=== PATIENT | male | born 1945 | race Two or more races ===

== ENCOUNTER 2023-07-10 17:21 | Inpatient (IN) | payer MEDICARE, OTHER ==
[~2023-07-10] VITALS: Ht 160 cm; Wt 60.8 kg
[2023-07-10] VITALS (8 sets, daily range): BP systolic 64–85; BP diastolic 55–75; TEMP 87.5–87.6; O2SAT 95–96
[2023-07-10] MEDS ORDERED: ETOMIDATE 2 MG/ML VIAL IV ONE (17:37)
[2023-07-10 18:06] LABS: BASOPHILS % (AUTO) 0.3 % (0.0-2.0); HEMATOCRIT 35 % (39-51); LYMPHOCYTES # (AUTO) 0.9 K/uL (0.8-4.8); LYMPHOCYTES % (AUTO) 5.2 % (20.0-44.0); MEAN CORPUSCULAR HEMOGLOBIN 29 PG (26.0-33.0); MEAN CORPUSCULAR HGB CONC 32 g/dl (31.0-36.0); MEAN CORPUSCULAR VOLUME 92 fL (80-96); MONOCYTES # (AUTO) 0.3 K/uL (0.1-1.30); MONOCYTES % (AUTO) 1.6 % (2.0-12.0); NEUTROPHILS # (AUTO) 15.5 K/uL (1.8-8.9); NEUTROPHILS % (AUTO) 92.9 % (43.0-81.0); PLATELET COUNT (AUTO) 165 K/uL (150-450); RED BLOOD CELL COUNT(AUTO) 3.77 MIL/uL (4.5-6.0); RED CELL DISTRIBUTION WIDTH 15.3 % (11.5-15.0); WHITE BLOOD COUNT (AUTO) 16.7 K/uL (4.3-11.0)
[2023-07-10] MEDS: IV LR 1000 ML 1,000 ML BAG IV ONE ×2 (18:10→18:45)
[2023-07-10 18:22] LABS: APPEARANCE,URINE Cloudy (CLEAR); BILIRUBIN,URINE SMALL (NEGATIVE); BLOOD, URINE Large Ery/uL (NEGATIVE); COLOR,URINE YELLOW (YELLOW); KETONES,URINE 15 mg/dL (NEGATIVE); LEUKOCYTE ESTERASE ,URINE Small (NEGATIVE); NITRITE, URINE Negative (NEGATIVE); PROTEIN,URINE 100 mg/dl (NEGATIVE); UGLUCOSE Negative (NEGATIVE); UROBILINOGEN,URINE 0.2 EU/dL (0.2)
[2023-07-10 18:24] LABS: LACTIC ACID 2.5 mmol/L (0.4-2.0)
[2023-07-10 18:25] LABS: CALCIUM, SERUM 8.8 mg/dL (8.5-10.1); CARBON DIOXIDE 21 mmol/L (21-32); CHLORIDE 119 mmol/L (98-107); CREATININE 1.9 mg/dL (0.6-1.3); GLUCOSE 179 mg/dL (74-106); SODIUM SERUM 151 mmol/L (136-145); UREA NITROGEN, BLOOD 49 mg/dL (7-18)
[2023-07-10] MEDS ORDERED: MELA3TAB41 PO (18:25)
[2023-07-10] MEDS ORDERED: FOLI0.8T3 PO (18:25)
[2023-07-10] MEDS ORDERED: TAMS-12 PO (18:25)
[2023-07-10] MEDS ORDERED: CYAN-51 PO (18:25)
[2023-07-10] MEDS ORDERED: THIA100T88 PO (18:25)
[2023-07-10] MEDS ORDERED: CRAN425C6 PO (18:25)
[2023-07-10 18:28] LABS: ACETAMINOPHEN 2 ug/ml (10-30); ALANINE AMINOTRANSFERASE 42 U/L (12-78); ALBUMIN 2.1 g/dL (3.4-5.0); ALCOHOL, BLOOD < 3 mg/dL (0-10); ALKALINE PHOSPHATASE 89 U/L (46-116); ASPARTATE AMINOTRANSFERASE 48 U/L (15-37); BILIRUBIN,DIRECT 0.2 mg/dL (0.0-0.2); BILIRUBIN,TOTAL 0.4 mg/dL (0.2-1.0); TOTAL PROTEIN, SERUM 5.4 g/dL (6.4-8.2)
[2023-07-10 18:30] LABS: SALICYLATE 2.5 mg/dL (2.8-20.0)
[2023-07-10 18:36] LABS: RBC,URINE 21-50 /HPF (0-2)
[2023-07-10 18:37] LABS: ADD URINE CULTURE YES; BACTERIA,URINE 1+ /HPF (None Seen); SQUAMOUS EPITHELIAL CELL,UR Few /HPF (None Seen)
[2023-07-10 18:38] LABS: AMPHETAMINE, URINE NEGATIVE (NEGATIVE); BARBITURATE, URINE NEGATIVE (NEGATIVE); BENZODIAZEPINE, URINE NEGATIVE (NEGATIVE); CALCIUM OXALATE CRYSTALS,UR FEW /HPF (None Seen); CANNABINOID, URINE NEGATIVE (NEGATIVE); COCCAINE, URINE NEGATIVE (NEGATIVE); OPIATE, URINE NEGATIVE (NEGATIVE); PHENCYCLIDINE SCREEN,URINE NEGATIVE (NEGATIVE)
[2023-07-10] MEDS ORDERED: NOREPINEPHRINE 8MG/250ML RTU 250 ML IV ONE (18:41)
[2023-07-10] MEDS: CEFEPIME 1 GM in IV D5W 50 ML IV ONE (18:45)
[2023-07-10] MEDS: VANCOMYCIN 1 GM in IV D5W 250 ML IV ONE (18:45)
[2023-07-10 18:56] LABS: THYROID STIMULATING HORMONE 4.795 uIU/mL (0.358-3.74)
[2023-07-10] MEDS: NOREPINEPHRINE 8 MG in IV NS 0.9% 250 ML IV ONE (19:00)
[2023-07-10 20:29] LABS: INR 1.18 (0.91-1.10)
[2023-07-10 20:46] LABS: ANISOCYTOSIS 1+; BAND % (MANUAL) 4 % (0.0-5.0); LYMPHOCYTES % (MANUAL) 5 % (16-48); MONOCYTES % (MANUAL) 3 % (0-11.0); NEUTROPHILS % (MANUAL) 88 (42-76); PLATELET ESTIMATE ADEQUATE
[2023-07-10] MEDS ORDERED: ACETAMINOPHEN 650 MG/SUPP.RECT RC PRN (22:00)
[2023-07-10] MEDS ORDERED: PROPOFOL 100 ML IV ONE (22:00)
[2023-07-10] MEDS ORDERED: Z GUARD REMEDY 4 OZ OINT TP PRN (22:00)
[2023-07-10] MEDS ORDERED: NOREPINEPHRINE 8 MG in IV D5W 242 ML IV PRN (22:00)
[2023-07-10] MEDS ORDERED: ONDANSETRON HCL/PF 4 MG/2 ML VIAL IVP PRN (22:00)
[2023-07-10 22:37] LABS: ABG OXYGEN SATURATION 89.7 % (92.0-98.5); ABG PCO2 25.6 mmHg (35.0-45.0); ABG PH 7.331 (7.350-7.450); ABG PO2 61.4 mmHg (75.0-100.0); ABG TOTAL HEMOGLOBIN 12.5 G/dL (13.5-18.0); COHb 0.3 % (0.5-1.5); MetHb 0.2 % (0.0-1.5); O2Hb 89.3 % (94.0-97.0); PEEP,BG 5 cm H2O; SITE, ABG Right Radial; VENT MODE, BG AC 20 500 40% +5; VT, ABG 500 mL
[2023-07-10] MEDS: NOREPINEPHRINE 8 MG in IV D5W 242 ML IV PRN (23:00)
[2023-07-10] MEDS: NOREPINEPHRINE 8MG/250ML RTU 250 ML IV ONE (23:02)
[2023-07-10] MEDS: IV D5W 1,000 ML IV PRN (23:21)
[2023-07-10] MEDS: PHENYLEPHRINE 100 MG in IV NS 0.9% 240 ML IV PRN (23:32)
[2023-07-10] MEDS: PHENYLEPHRINE 10 MG/ML VIAL ONE (23:42)
[2023-07-10] MEDS ORDERED: PERMETHRIN 5% CRM 60 GM TUBE TP ONE (23:57)
[2023-07-11] VITALS (99 sets, daily range): BP systolic 50–147; BP diastolic 26–87; TEMP 90.1–98.2; O2SAT 87–100
[2023-07-11] MEDS: NOREPINEPHRINE 4 MG/4 ML AMPUL IV ONE (00:11)
[2023-07-11] MEDS: HYDROCORTISONE SOD SUCCINATE 100 MG/2 ML VIAL IV SCH (00:44)
[2023-07-11 00:58] LABS: CALCIUM, SERUM 8.3 mg/dL (8.5-10.1); CARBON DIOXIDE 18 mmol/L (21-32); CHLORIDE 113 mmol/L (98-107); GLUCOSE 371 mg/dL (74-106); MAGNESIUM 2.5 mg/dL (1.8-2.4); POTASSIUM 4.3 mmol/L (3.5-5.1); SODIUM SERUM 149 mmol/L (136-145); UREA NITROGEN, BLOOD 48 mg/dL (7-18)
[2023-07-11] MEDS: PERMETHRIN 5% CRM 60 GM TUBE TP ONE (01:02)
[2023-07-11] MEDS: NOREPINEPHRINE 32 MG in IV NS 0.9% 218 ML IV PRN (01:22)
[2023-07-11] MEDS: IV NS 0.9% 1,000 ML IV ONE (01:35)
[2023-07-11] MEDS: VASOPRESSIN INJ 40 UNIT in IV NS 0.9% 38 ML IV PRN (03:27)
[2023-07-11] MEDS ORDERED: MEROPENEM 500 MG in IV NS 0.9% 50 ML IV SCH (04:00)
[2023-07-11] MEDS: MEROPENEM 500MG/NS 50 ML PB IV ONE (04:09)
[2023-07-11] MEDS: MEROPENEM 500 MG in IV NS 0.9% 50 ML IV ONE (04:10)
[2023-07-11] MEDS: VASOPRESSIN INJ 20 UNIT/ML VIAL ONE (04:11)
[2023-07-11 04:22] LABS: BASOPHILS % (AUTO) 0.1 % (0.0-2.0); EOSINOPHILS % (AUTO) 0.1 % (0.0-6.0); HEMATOCRIT 39 % (39-51); MEAN CORPUSCULAR HEMOGLOBIN 29 PG (26.0-33.0); MEAN CORPUSCULAR HGB CONC 31 g/dl (31.0-36.0); MEAN CORPUSCULAR VOLUME 94 fL (80-96); MONOCYTES # (AUTO) 0.4 K/uL (0.1-1.30); MONOCYTES % (AUTO) 1.6 % (2.0-12.0); NEUTROPHILS # (AUTO) 22.5 K/uL (1.8-8.9); NEUTROPHILS % (AUTO) 94.2 % (43.0-81.0); PLATELET COUNT (AUTO) 216 K/uL (150-450); RED BLOOD CELL COUNT(AUTO) 4.12 MIL/uL (4.5-6.0); RED CELL DISTRIBUTION WIDTH 15.9 % (11.5-15.0); WHITE BLOOD COUNT (AUTO) 23.9 K/uL (4.3-11.0)
[2023-07-11 04:52] LABS: CALCIUM, SERUM 7.7 mg/dL (8.5-10.1); CARBON DIOXIDE 14 mmol/L (21-32); CHLORIDE 113 mmol/L (98-107); CREATININE 1.9 mg/dL (0.6-1.3); GLUCOSE 362 mg/dL (74-106); MAGNESIUM 2.4 mg/dL (1.8-2.4); PHOSPHORUS 6.3 mg/dL (2.5-4.9); POTASSIUM 4.2 mmol/L (3.5-5.1); SODIUM SERUM 149 mmol/L (136-145); UREA NITROGEN, BLOOD 43 mg/dL (7-18)
[2023-07-11 04:58] LABS: IRON, SERUM 43 ug/dl (50-175); TOTAL IRON BINDING CAPACITY 143 ug/dl (250-450)
[2023-07-11 05:15] LABS: FERRITIN 891 ng/mL (8-388)
[2023-07-11 07:05] LABS: ABG BASE EXCESS -12.3 mmol/L; ABG OXYGEN SATURATION 94.4 % (92.0-98.5); ABG PCO2 29.7 mmHg (35.0-45.0); ABG PH 7.266 (7.350-7.450); ABG PO2 80.8 mmHg (75.0-100.0); ABG TOTAL HEMOGLOBIN 13.8 G/dL (13.5-18.0); AaDO2 614.9 mmHg; COHb 0.7 % (0.5-1.5); MetHb 0.4 % (0.0-1.5); O2Hb 93.4 % (94.0-97.0); PEEP,BG 0 cm H2O; SITE, ABG Right Radial; VENT MODE, BG AC 20 500 100% +0; VT, ABG 500 mL
[2023-07-11] MEDS: PANTOPRAZOLE 40 MG VIAL IV SCH (08:19)
[2023-07-11] MEDS: IV NS 0.9% 500 ML IV ONE (08:20)
[2023-07-11] MEDS: MEROPENEM 500 MG in IV NS 0.9% 100 ML IV SCH (16:14)
[2023-07-11] MEDS: VANCOMYCIN 750 MG in IV D5W 250 ML IV SCH (17:28)
[2023-07-11] MEDS: PROPOFOL 100 ML IV PRN (17:49)
[2023-07-11] MEDS: IV D5/0.45 NACL 1,000 ML IV PRN (18:35)
[2023-07-12] VITALS (98 sets, daily range): BP systolic 56–156; BP diastolic 37–90; TEMP 97.1–99.2; O2SAT 93–100
[2023-07-12 02:16] LABS: APPEARANCE,URINE SLIGHTLY CLOUDY (CLEAR); BILIRUBIN,URINE 1+ (NEGATIVE); BLOOD, URINE 3+ Ery/uL (NEGATIVE); COLOR,URINE YELLOW (YELLOW); KETONES,URINE 1+ mg/dL (NEGATIVE); LEUKOCYTE ESTERASE ,URINE 1+ (NEGATIVE); NITRITE, URINE NEGATIVE (NEGATIVE); PH,URINE 5.5 (5.0-8.0); PROTEIN,URINE 2+ mg/dl (NEGATIVE); UGLUCOSE 1+ mg/dL (NEGATIVE); UROBILINOGEN,URINE 0.2 EU/dL (0.2)
[2023-07-12] MEDS: IV NS 0.9% 250 ML IV PRN (03:07)
[2023-07-12 03:12] LABS: CREATININE, URINE 100.1 MG/DL (30.0-125.0)
[2023-07-12 03:29] LABS: ADD URINE CULTURE YES; BACTERIA,URINE Few /HPF (None Seen); CALCIUM OXALATE CRYSTALS,UR Moderate /HPF (None Seen); MUCUS,URINE Moderate /LPF (None Seen); RBC,URINE 21-50 /HPF (0-2); SQUAMOUS EPITHELIAL CELL,UR None Seen /HPF (None Seen)
[2023-07-12 04:20] LABS: EOSINOPHIL,URINE None Seen
[2023-07-12 04:21] LABS: BASOPHILS % (AUTO) 0.1 % (0.0-2.0); HEMOGLOBIN 9.8 g/dL (13.5-17.5); LYMPHOCYTES # (AUTO) 1.3 K/uL (0.8-4.8); MONOCYTES # (AUTO) 0.9 K/uL (0.1-1.30)
[2023-07-12 04:28] LABS: HEMATOCRIT 31 % (39-51); MEAN CORPUSCULAR HEMOGLOBIN 30 PG (26.0-33.0); MEAN CORPUSCULAR HGB CONC 32 g/dl (31.0-36.0); MEAN CORPUSCULAR VOLUME 94 fL (80-96); MONOCYTES % (AUTO) 2.8 % (2.0-12.0); NEUTROPHILS # (AUTO) 31.2 K/uL (1.8-8.9); NEUTROPHILS % (AUTO) 93.1 % (43.0-81.0); PLATELET COUNT (AUTO) 96 K/uL (150-450); RED BLOOD CELL COUNT(AUTO) 3.27 MIL/uL (4.5-6.0); RED CELL DISTRIBUTION WIDTH 15.8 % (11.5-15.0)
[2023-07-12 04:33] LABS: WHITE BLOOD COUNT (AUTO) 33.5 K/uL (4.3-11.0)
[2023-07-12 04:40] LABS: CREATINE KINASE, TOTAL 144 U/L (39-308)
[2023-07-12 04:58] LABS: BAND % (MANUAL) 2 % (0.0-5.0); LYMPHOCYTES % (MANUAL) 4 % (16-48); MONOCYTES % (MANUAL) 2 % (0-11.0); NEUTROPHILS % (MANUAL) 92 (42-76); PLATELET ESTIMATE DECREASED
[2023-07-12 04:59] LABS: ALANINE AMINOTRANSFERASE 35 U/L (12-78); ALBUMIN 1.6 g/dL (3.4-5.0); ALKALINE PHOSPHATASE 84 U/L (46-116); ASPARTATE AMINOTRANSFERASE 29 U/L (15-37); BILIRUBIN,TOTAL 0.5 mg/dL (0.2-1.0); CALCIUM, SERUM 6.7 mg/dL (8.5-10.1); CARBON DIOXIDE 16 mmol/L (21-32); CHLORIDE 112 mmol/L (98-107); CREATININE 2.8 mg/dL (0.6-1.3); MAGNESIUM 2.2 mg/dL (1.8-2.4); PHOSPHORUS 5.8 mg/dL (2.5-4.9); SODIUM SERUM 142 mmol/L (136-145); TOTAL PROTEIN, SERUM 4.6 g/dL (6.4-8.2); UREA NITROGEN, BLOOD 57 mg/dL (7-18)
[2023-07-12 05:05] LABS: GLUCOSE 571 mg/dL (74-106); POTASSIUM 6.3 mmol/L (3.5-5.1)
[2023-07-12] MEDS ORDERED: DEXTROSE 50%-WATER 50 ML DISP.SYRIN IV PRN ×2 (05:30→18:30)
[2023-07-12] MEDS: SODIUM BICARBONATE SYR 50 MEQ/50 ML DISP.SYRIN IV ONE (05:45)
[2023-07-12] MEDS: SODIUM POLYSTYRENE SULFONATE 15 G/60 ML BOTTLE PO ONE ×2 (05:45→09:27)
[2023-07-12] MEDS: IV 1/2NS 1000 ML 1,000 ML IV PRN (05:46)
[2023-07-12] MEDS: INSULIN REGULAR, HUMAN 100 UNIT/ML 10 ML VIAL IV ONE (06:06)
[2023-07-12] MEDS: BLOOD SUGAR DIAGNOSTIC 1 EACH STRIP IN SCH ×2 (06:12→09:24)
[2023-07-12] MEDS: INSULIN REGULAR, HUMAN 100 UNIT/ML 3 ML VIAL SQ ONE (06:16)
[2023-07-12] MEDS: DEXTROSE 50%-WATER 50 ML DISP.SYRIN IVP ONE (06:17)
[2023-07-12] MEDS: INSULIN REGULAR, HUMAN 100 UNIT/ML 3 ML VIAL SQ PRN (07:39)
[2023-07-12] MEDS: INSULIN REGULAR, HUMAN 100 UNIT in IV NS 0.9% 99 ML IV PRN (09:18)
[2023-07-12 09:23] LABS: CALCIUM, SERUM 6.7 mg/dL (8.5-10.1); CARBON DIOXIDE 19 mmol/L (21-32); CHLORIDE 115 mmol/L (98-107); CREATININE 3.1 mg/dL (0.6-1.3); POTASSIUM 5.4 mmol/L (3.5-5.1); SODIUM SERUM 147 mmol/L (136-145); UREA NITROGEN, BLOOD 58 mg/dL (7-18)
[2023-07-12] MEDS: Sodium Bicarbonate 50 MEQ in IV 1/2NS 1000 ML 1,000 ML IV SCH (09:26)
[2023-07-12] MEDS: BUMETANIDE INJ 0.25 MG/ML VIAL IV ONE (09:26)
[2023-07-12 09:27] LABS: GLUCOSE 660 mg/dL (74-106)
[2023-07-12] MEDS: HYDROCORTISONE SOD SUCCINATE 100 MG/2 ML VIAL IV SCH (09:27)
[2023-07-12] MEDS ORDERED: DICL100G34 TP (11:08)
[2023-07-12] MEDS ORDERED: NA P133E RC (11:08)
[2023-07-12] MEDS ORDERED: MAGN400O6 PO (11:08)
[2023-07-12] MEDS ORDERED: AMMO225L14 TP (11:08)
[2023-07-12] MEDS ORDERED: ACET-2605 PO (11:08)
[2023-07-12 13:27] LABS: CALCIUM, SERUM 6.8 mg/dL (8.5-10.1); CARBON DIOXIDE 19 mmol/L (21-32); CHLORIDE 119 mmol/L (98-107); CREATININE 3.2 mg/dL (0.6-1.3); GLUCOSE 295 mg/dL (74-106); POTASSIUM 4.2 mmol/L (3.5-5.1); SODIUM SERUM 153 mmol/L (136-145); UREA NITROGEN, BLOOD 55 mg/dL (7-18)
[2023-07-12] MEDS ORDERED: [UNRECOGNIZED DRUG - OTHER] IV PRN (15:30)
[2023-07-12] MEDS ORDERED: SODIUM BICARBONATE IV PRN ×2 (15:30→16:00)
[2023-07-12] MEDS ORDERED: POTASSIUM CHLORIDE IV PRN (15:30)
[2023-07-12] MEDS ORDERED: NACL IV SCH (16:00)
[2023-07-12] MEDS ORDERED: D5 IV PRN (16:00)
[2023-07-12] MEDS ORDERED: SODIUM BICARBONATE IV SCH (16:00)
[2023-07-12] MEDS ORDERED: NACL IV PRN (16:00)
[2023-07-12] MEDS ORDERED: D5 IV SCH (16:00)
[2023-07-12] MEDS: Sodium Bicarbonate 50 MEQ in IV D5/0.45 NACL 1,000 ML IV SCH (16:42)
[2023-07-12 17:57] LABS: CARBON DIOXIDE 24 mmol/L (21-32); CHLORIDE 125 mmol/L (98-107); CREATININE 2.7 mg/dL (0.6-1.3); GLUCOSE 96 mg/dL (74-106); POTASSIUM 3.2 mmol/L (3.5-5.1); UREA NITROGEN, BLOOD 50 mg/dL (7-18)
[2023-07-12 17:59] LABS: CALCIUM, SERUM 5.8 mg/dL (8.5-10.1); SODIUM SERUM 158 mmol/L (136-145)
[2023-07-12] MEDS: POTASSIUM CL. PREMIX PERIPHER. 50 ML IV SCH (18:26)
[2023-07-12] MEDS: VANCOMYCIN 750 MG in IV D5W 250 ML IV SCH (20:04)
[2023-07-13] VITALS (98 sets, daily range): BP systolic 79–123; BP diastolic 47–79; TEMP 96.4–98.4; O2SAT 95–100
[2023-07-13] MEDS: BLOOD SUGAR DIAGNOSTIC 1 EACH STRIP IN SCH ×2 (00:32→12:25)
[2023-07-13] MEDS: INSULIN REGULAR, HUMAN 100 UNIT/ML 3 ML VIAL SQ PRN ×2 (00:34→12:24)
[2023-07-13 05:00] LABS: BASOPHILS # (AUTO) 0.1 K/uL (0.0-0.2); BASOPHILS % (AUTO) 0.3 % (0.0-2.0); EOSINOPHILS % (AUTO) 0.1 % (0.0-6.0); HEMATOCRIT 24 % (39-51); HEMOGLOBIN 7.9 g/dL (13.5-17.5); LYMPHOCYTES # (AUTO) 2.5 K/uL (0.8-4.8); LYMPHOCYTES % (AUTO) 10.3 % (20.0-44.0); MEAN CORPUSCULAR HEMOGLOBIN 30 PG (26.0-33.0); MEAN CORPUSCULAR HGB CONC 32 g/dl (31.0-36.0); MEAN CORPUSCULAR VOLUME 92 fL (80-96); MONOCYTES # (AUTO) 0.9 K/uL (0.1-1.30); NEUTROPHILS # (AUTO) 20.3 K/uL (1.8-8.9); NEUTROPHILS % (AUTO) 85.3 % (43.0-81.0); PLATELET COUNT (AUTO) 51 K/uL (150-450); RED BLOOD CELL COUNT(AUTO) 2.64 MIL/uL (4.5-6.0); RED CELL DISTRIBUTION WIDTH 15.4 % (11.5-15.0); WHITE BLOOD COUNT (AUTO) 23.7 K/uL (4.3-11.0)
[2023-07-13 05:33] LABS: CALCIUM, SERUM 6.4 mg/dL (8.5-10.1); CARBON DIOXIDE 28 mmol/L (21-32); CHLORIDE 122 mmol/L (98-107); CREATININE 2.9 mg/dL (0.6-1.3); GLUCOSE 267 mg/dL (74-106); UREA NITROGEN, BLOOD 53 mg/dL (7-18)
[2023-07-13 05:37] LABS: POTASSIUM 2.8 mmol/L (3.5-5.1); SODIUM SERUM 159 mmol/L (136-145)
[2023-07-13 06:09] LABS: ABG OXYGEN SATURATION 96.2 % (92.0-98.5); ABG PCO2 23.4 mmHg (35.0-45.0); ABG PH 7.502 (7.350-7.450); ABG TOTAL HEMOGLOBIN 9.8 G/dL (13.5-18.0); AaDO2 172.3 mmHg; COHb 0.3 % (0.5-1.5); MetHb 0.3 % (0.0-1.5); O2Hb 95.6 % (94.0-97.0); PEEP,BG 0 cm H2O; SITE, ABG Left Radial; VT, ABG 500 mL
[2023-07-13] MEDS: POTASSIUM CL. PREMIX PERIPHER. 50 ML IV SCH (06:30)
[2023-07-13 06:59] LABS: LYMPHOCYTES % (MANUAL) 13 % (16-48); MONOCYTES % (MANUAL) 2 % (0-11.0); NEUTROPHILS % (MANUAL) 85 (42-76); PLATELET ESTIMATE DECREASED
[2023-07-13] MEDS: IV D5W 1,000 ML IV SCH (07:56)
[2023-07-13] MEDS ORDERED: DEXTROSE 50%-WATER 50 ML DISP.SYRIN IV PRN (08:30)
[2023-07-13] MEDS: GLUCERNA 1.2 1,000 ML BOTTLE NG PRN (10:42)
[2023-07-13 11:10] LABS: *ANA ANTI-CENTROMERE B AB <0.2 AI (0.0-0.9); *ANA ANTI-DNA(DS) AB, QN <1 IU/mL (0-9); *ANA ANTI-JO-1 <0.2 AI (0.0-0.9); *ANA ANTICHROMATIN ANTIBODY <0.2 AI (0.0-0.9); *ANA RNP ANTIBODIES >8.0 AI (0.0-0.9); *ANA SJOGREN'S ANTI-SS-A <0.2 AI (0.0-0.9); *ANA SJOGREN'S ANTI-SS-B 0.4 AI (0.0-0.9); *ANAANTI-SCLERODERMA-70 AB <0.2 AI (0.0-0.9); *ANASMITH AB <0.2 AI (0.0-0.9)
[2023-07-13] MEDS ORDERED: BLOOD SUGAR DIAGNOSTIC 1 EACH STRIP IN SCH ×2 (12:00)
[2023-07-13] MEDS: VITAMINS A AND D 56.7 GM TUBE TP SCH (13:50)
[2023-07-13 14:20] LABS: ABG OXYGEN SATURATION 95.7 % (92.0-98.5); ABG PCO2 30.3 mmHg (35.0-45.0); ABG PH 7.521 (7.350-7.450); ABG PO2 75.6 mmHg (75.0-100.0); ABG TOTAL HEMOGLOBIN 11.9 G/dL (13.5-18.0); AaDO2 102.7 mmHg; COHb 0.6 % (0.5-1.5); MetHb 0.3 % (0.0-1.5); O2Hb 94.8 % (94.0-97.0); SITE, ABG Right Radial
[2023-07-13] MEDS: MUPIROCIN OINT 2% 22 GM TUBE NS SCH (21:00)
[2023-07-14] VITALS (94 sets, daily range): BP systolic 87–157; BP diastolic 49–89; TEMP 95–97.6; O2SAT 95–100
[2023-07-14 02:10] LABS: PTH, INTACT 295 pg/mL (15-65)
[2023-07-14 03:07] LABS: HEPATITIS B SURFACE AB Non Reactive (.)
[2023-07-14 04:26] LABS: CALCIUM, SERUM 6.5 mg/dL (8.5-10.1); CARBON DIOXIDE 31 mmol/L (21-32); CHLORIDE 120 mmol/L (98-107); CREATININE 1.9 mg/dL (0.6-1.3); GLUCOSE 199 mg/dL (74-106); MAGNESIUM 1.8 mg/dL (1.8-2.4); PHOSPHORUS 3.4 mg/dL (2.5-4.9); POTASSIUM 2.9 mmol/L (3.5-5.1); SODIUM SERUM 155 mmol/L (136-145); UREA NITROGEN, BLOOD 48 mg/dL (7-18)
[2023-07-14 04:27] LABS: EOSINOPHILS # (AUTO) 0.1 K/uL (0.0-0.7); EOSINOPHILS % (AUTO) 0.4 % (0.0-6.0); HEMATOCRIT 22 % (39-51); HEMOGLOBIN 7.1 g/dL (13.5-17.5); LYMPHOCYTES # (AUTO) 2.2 K/uL (0.8-4.8); LYMPHOCYTES % (AUTO) 10.2 % (20.0-44.0); MEAN CORPUSCULAR HEMOGLOBIN 30 PG (26.0-33.0); MEAN CORPUSCULAR HGB CONC 32 g/dl (31.0-36.0); MEAN CORPUSCULAR VOLUME 92 fL (80-96); MONOCYTES # (AUTO) 0.7 K/uL (0.1-1.30); MONOCYTES % (AUTO) 3.4 % (2.0-12.0); NEUTROPHILS # (AUTO) 18.3 K/uL (1.8-8.9); RED CELL DISTRIBUTION WIDTH 15.5 % (11.5-15.0); WHITE BLOOD COUNT (AUTO) 21.2 K/uL (4.3-11.0)
[2023-07-14 04:28] LABS: PLATELET COUNT (AUTO) 40 K/uL (150-450)
[2023-07-14 08:09] LABS: COMPLEMENT C3, SERUM 56 mg/dL (82-167); COMPLEMENT C4, SERUM 14 mg/dL (12-38)
[2023-07-14 08:43] LABS: BAND % (MANUAL) 1 % (0.0-5.0); EOSINOPHILS % (MANUAL) 1 % (0-4); LYMPHOCYTES % (MANUAL) 8 % (16-48); MONOCYTES % (MANUAL) 2 % (0-11.0); NEUTROPHILS % (MANUAL) 88 (42-76); PLATELET ESTIMATE DECREASED
[2023-07-14 08:52] LABS: ABG BASE EXCESS 2.2 mmol/L; ABG PCO2 29.8 mmHg (35.0-45.0); ABG PH 7.537 (7.350-7.450); ABG PO2 79.6 mmHg (75.0-100.0); ABG TOTAL HEMOGLOBIN 7.3 G/dL (13.5-18.0); AaDO2 99.3 mmHg; COHb 1.2 % (0.5-1.5); MetHb 0.2 % (0.0-1.5); O2Hb 94.7 % (94.0-97.0); PEEP,BG 0 cm H2O; SITE, ABG Right Radial; VT, ABG 450 mL
[2023-07-14] MEDS: PANTOPRAZOLE 40 MG/PACK PACK NG SCH (09:00)
[2023-07-14] MEDS: POTASSIUM CL. PREMIX PERIPHER. 50 ML IV SCH (10:22)
[2023-07-14] MEDS: NOREPINEPHRINE 8 MG in IV NS 0.9% 242 ML IV PRN (21:12)
[2023-07-15] VITALS (94 sets, daily range): BP systolic 79–116; BP diastolic 44–64; TEMP 97.7–98.2; O2SAT 87–100
[2023-07-15 04:51] LABS: CALCIUM, SERUM 6.8 mg/dL (8.5-10.1); CARBON DIOXIDE 24 mmol/L (21-32); CHLORIDE 112 mmol/L (98-107); CREATININE 1.8 mg/dL (0.6-1.3); GLUCOSE 165 mg/dL (74-106); POTASSIUM 3.8 mmol/L (3.5-5.1); SODIUM SERUM 143 mmol/L (136-145); UREA NITROGEN, BLOOD 43 mg/dL (7-18)
[2023-07-16] VITALS (96 sets, daily range): BP systolic 77–137; BP diastolic 42–87; TEMP 97.2–98.2; O2SAT 92–100
[2023-07-16 03:50] LABS: BASOPHILS % (AUTO) 0.1 % (0.0-2.0); EOSINOPHILS # (AUTO) 1.4 K/uL (0.0-0.7); EOSINOPHILS % (AUTO) 7.9 % (0.0-6.0); HEMATOCRIT 22 % (39-51); HEMOGLOBIN 7.1 g/dL (13.5-17.5); LYMPHOCYTES # (AUTO) 1.6 K/uL (0.8-4.8); LYMPHOCYTES % (AUTO) 8.8 % (20.0-44.0); MEAN CORPUSCULAR HEMOGLOBIN 30 PG (26.0-33.0); MEAN CORPUSCULAR HGB CONC 32 g/dl (31.0-36.0); MEAN CORPUSCULAR VOLUME 93 fL (80-96); MONOCYTES # (AUTO) 0.8 K/uL (0.1-1.30); MONOCYTES % (AUTO) 4.4 % (2.0-12.0); NEUTROPHILS # (AUTO) 13.9 K/uL (1.8-8.9); NEUTROPHILS % (AUTO) 78.8 % (43.0-81.0); RED BLOOD CELL COUNT(AUTO) 2.36 MIL/uL (4.5-6.0); WHITE BLOOD COUNT (AUTO) 17.6 K/uL (4.3-11.0)
[2023-07-16 04:05] LABS: CALCIUM, SERUM 7.2 mg/dL (8.5-10.1); CARBON DIOXIDE 29 mmol/L (21-32); CHLORIDE 111 mmol/L (98-107); CREATININE 1.4 mg/dL (0.6-1.3); GLUCOSE 203 mg/dL (74-106); POTASSIUM 3.9 mmol/L (3.5-5.1); SODIUM SERUM 142 mmol/L (136-145); UREA NITROGEN, BLOOD 42 mg/dL (7-18)
[2023-07-16 04:51] LABS: PLATELET COUNT (AUTO) 35 K/uL (150-450)
[2023-07-16 05:48] LABS: BAND % (MANUAL) 3 % (0.0-5.0); LYMPHOCYTES % (MANUAL) 10 % (16-48)
[2023-07-16 05:49] LABS: EOSINOPHILS % (MANUAL) 4 % (0-4); MONOCYTES % (MANUAL) 7 % (0-11.0)
[2023-07-16 05:50] LABS: ANISOCYTOSIS 1+; NEUTROPHILS % (MANUAL) 76 (42-76); PLATELET ESTIMATE DECREASED
[2023-07-16] MEDS: PROPOFOL 100 ML IV PRN (07:07)
[2023-07-16] MEDS: VITAMINS A AND D 56.7 GM TUBE TP SCH (13:00)
[2023-07-17] VITALS (72 sets, daily range): BP systolic 78–128; BP diastolic 46–72; TEMP 97.4–98.3; O2SAT 94–100
[2023-07-17] MEDS ORDERED: NOREPINEPHRINE 8 MG in IV D5W 242 ML IV PRN (01:30)
[2023-07-17] MEDS: NOREPINEPHRINE 8 MG in IV D5W 242 ML IV PRN (07:28)
[2023-07-17 07:38] LABS: CARBON DIOXIDE 24 mmol/L (21-32); CHLORIDE 108 mmol/L (98-107); CREATININE 1.4 mg/dL (0.6-1.3); GLUCOSE 181 mg/dL (74-106); POTASSIUM 4.1 mmol/L (3.5-5.1); SODIUM SERUM 139 mmol/L (136-145); UREA NITROGEN, BLOOD 41 mg/dL (7-18)
[2023-07-17 13:55] LABS: HEMATOCRIT 21 % (39-51); LYMPHOCYTES % (AUTO) 4.9 % (20.0-44.0); MEAN CORPUSCULAR HEMOGLOBIN 30 PG (26.0-33.0); MEAN CORPUSCULAR HGB CONC 33 g/dl (31.0-36.0); MEAN CORPUSCULAR VOLUME 92 fL (80-96); MONOCYTES % (AUTO) 3.3 % (2.0-12.0); NEUTROPHILS % (AUTO) 83.8 % (43.0-81.0); RED BLOOD CELL COUNT(AUTO) 2.25 MIL/uL (4.5-6.0); RED CELL DISTRIBUTION WIDTH 15.3 % (11.5-15.0); WHITE BLOOD COUNT (AUTO) 21.5 K/uL (4.3-11.0)
[2023-07-17 13:56] LABS: EOSINOPHILS # (AUTO) 1.7 K/uL (0.0-0.7); LYMPHOCYTES # (AUTO) 1.1 K/uL (0.8-4.8); MONOCYTES # (AUTO) 0.7 K/uL (0.1-1.30)
[2023-07-17 13:59] LABS: HEMOGLOBIN 6.8 g/dL (13.5-17.5); PLATELET COUNT (AUTO) 43 K/uL (150-450)
[2023-07-17 20:59] LABS: ANISOCYTOSIS 1+; BAND % (MANUAL) 2 % (0.0-5.0); EOSINOPHILS % (MANUAL) 9 % (0-4); LYMPHOCYTES % (MANUAL) 7 % (16-48); MONOCYTES % (MANUAL) 2 % (0-11.0); NEUTROPHILS % (MANUAL) 80 (42-76); PLATELET ESTIMATE DECRE
[2023-07-17 21:00] LABS: ROULEAUX 1+
[2023-07-17 21:07] LABS: HEMOGLOBIN 7.9 g/dL (13.5-17.5)
[2023-07-18] VITALS (72 sets, daily range): BP systolic 79–119; BP diastolic 43–92; TEMP 98.1–98.4; O2SAT 75–100
[2023-07-18 14:57] LABS: CALCIUM, SERUM 7.5 mg/dL (8.5-10.1); CARBON DIOXIDE 28 mmol/L (21-32); CHLORIDE 108 mmol/L (98-107); CREATININE 1.5 mg/dL (0.6-1.3); GLUCOSE 267 mg/dL (74-106); POTASSIUM 4.4 mmol/L (3.5-5.1); SODIUM SERUM 139 mmol/L (136-145); UREA NITROGEN, BLOOD 39 mg/dL (7-18)
[2023-07-18 15:07] LABS: ALANINE AMINOTRANSFERASE 18 U/L (12-78); ALKALINE PHOSPHATASE 120 U/L (46-116); ASPARTATE AMINOTRANSFERASE 17 U/L (15-37); BILIRUBIN,TOTAL 0.5 mg/dL (0.2-1.0); TOTAL PROTEIN, SERUM 4.5 g/dL (6.4-8.2)
[2023-07-18] MEDS: IV D5W 1,000 ML IV PRN (15:49)
[2023-07-19] VITALS (37 sets, daily range): BP systolic 84–115; BP diastolic 44–73; TEMP 97.6–99.5; O2SAT 95–99
[2023-07-19 05:15] LABS: BASOPHILS % (AUTO) 0.2 % (0.0-2.0); EOSINOPHILS # (AUTO) 0.8 K/uL (0.0-0.7); HEMATOCRIT 23 % (39-51); HEMOGLOBIN 7.6 g/dL (13.5-17.5); LYMPHOCYTES # (AUTO) 1.1 K/uL (0.8-4.8); LYMPHOCYTES % (AUTO) 5.8 % (20.0-44.0); MEAN CORPUSCULAR HEMOGLOBIN 30 PG (26.0-33.0); MEAN CORPUSCULAR HGB CONC 33 g/dl (31.0-36.0); MEAN CORPUSCULAR VOLUME 91 fL (80-96); MONOCYTES % (AUTO) 5.4 % (2.0-12.0); NEUTROPHILS # (AUTO) 16.2 K/uL (1.8-8.9); NEUTROPHILS % (AUTO) 84.6 % (43.0-81.0); PLATELET COUNT (AUTO) 93 K/uL (150-450); RED BLOOD CELL COUNT(AUTO) 2.57 MIL/uL (4.5-6.0); RED CELL DISTRIBUTION WIDTH 15.3 % (11.5-15.0); WHITE BLOOD COUNT (AUTO) 19.2 K/uL (4.3-11.0)
[2023-07-19 05:42] LABS: CALCIUM, SERUM 7.4 mg/dL (8.5-10.1); CARBON DIOXIDE 30 mmol/L (21-32); CHLORIDE 107 mmol/L (98-107); CREATININE 1.5 mg/dL (0.6-1.3); GLUCOSE 180 mg/dL (74-106); POTASSIUM 4.2 mmol/L (3.5-5.1); SODIUM SERUM 140 mmol/L (136-145); UREA NITROGEN, BLOOD 40 mg/dL (7-18)
[2023-07-19 06:44] LABS: NEUTROPHILS % (MANUAL) 89 (42-76)
[2023-07-19 06:45] LABS: BAND % (MANUAL) 2 % (0.0-5.0); EOSINOPHILS % (MANUAL) 2 % (0-4); LYMPHOCYTES % (MANUAL) 4 % (16-48); MONOCYTES % (MANUAL) 3 % (0-11.0)
[2023-07-19 06:46] LABS: ANISOCYTOSIS 1+; PLATELET ESTIMATE DECREASED
[2023-07-19 06:47] LABS: STOMATOCYTES 1+
[2023-07-20] VITALS (29 sets, daily range): BP systolic 84–114; BP diastolic 45–61; TEMP 97.2–99.4; O2SAT 98–100
[2023-07-20 05:48] LABS: CALCIUM, SERUM 6.8 mg/dL (8.5-10.1); CARBON DIOXIDE 26 mmol/L (21-32); CHLORIDE 107 mmol/L (98-107); CREATININE 1.4 mg/dL (0.6-1.3); GLUCOSE 148 mg/dL (74-106); POTASSIUM 3.6 mmol/L (3.5-5.1); SODIUM SERUM 139 mmol/L (136-145); UREA NITROGEN, BLOOD 45 mg/dL (7-18)
[2023-07-20 11:21] LABS: ABG BASE EXCESS 2.8 mmol/L; ABG PCO2 33.1 mmHg (35.0-45.0); ABG PO2 71.8 mmHg (75.0-100.0); ABG TOTAL HEMOGLOBIN 8.5 G/dL (13.5-18.0); AaDO2 103.2 mmHg; COHb 0.1 % (0.5-1.5); MetHb 0.3 % (0.0-1.5); O2Hb 94.6 % (94.0-97.0); SITE, ABG Right Radial
[2023-07-21] VITALS (25 sets, daily range): BP systolic 80–115; BP diastolic 46–62; TEMP 97.2–97.8; O2SAT 99–100
[2023-07-21 05:14] LABS: CALCIUM, SERUM 7.2 mg/dL (8.5-10.1); CARBON DIOXIDE 28 mmol/L (21-32); CHLORIDE 106 mmol/L (98-107); CREATININE 1.5 mg/dL (0.6-1.3); GLUCOSE 122 mg/dL (74-106); POTASSIUM 3.5 mmol/L (3.5-5.1); SODIUM SERUM 139 mmol/L (136-145); UREA NITROGEN, BLOOD 41 mg/dL (7-18)
[2023-07-21] MEDS ORDERED: DC PROPOFOL WHEN EXTUBATED XX PRN (08:00)
[2023-07-22] VITALS (17 sets, daily range): BP systolic 91–111; BP diastolic 43–82; TEMP 97.7–98.3; O2SAT 95–100
[2023-07-22 04:50] LABS: BASOPHILS % (AUTO) 0.2 % (0.0-2.0); EOSINOPHILS % (AUTO) 7.5 % (0.0-6.0); HEMATOCRIT 24 % (39-51); HEMOGLOBIN 7.8 g/dL (13.5-17.5); LYMPHOCYTES # (AUTO) 1.1 K/uL (0.8-4.8); LYMPHOCYTES % (AUTO) 8.9 % (20.0-44.0); MEAN CORPUSCULAR HEMOGLOBIN 29 PG (26.0-33.0); MEAN CORPUSCULAR HGB CONC 32 g/dl (31.0-36.0); MEAN CORPUSCULAR VOLUME 91 fL (80-96); MONOCYTES # (AUTO) 0.9 K/uL (0.1-1.30); MONOCYTES % (AUTO) 7.1 % (2.0-12.0); NEUTROPHILS # (AUTO) 9.7 K/uL (1.8-8.9); NEUTROPHILS % (AUTO) 76.3 % (43.0-81.0); PLATELET COUNT (AUTO) 295 K/uL (150-450); RED BLOOD CELL COUNT(AUTO) 2.68 MIL/uL (4.5-6.0); WHITE BLOOD COUNT (AUTO) 12.7 K/uL (4.3-11.0)
[2023-07-22 05:16] LABS: ALANINE AMINOTRANSFERASE 20 U/L (12-78); ALKALINE PHOSPHATASE 138 U/L (46-116); ASPARTATE AMINOTRANSFERASE 18 U/L (15-37); BILIRUBIN,DIRECT 0.1 mg/dL (0.0-0.2); BILIRUBIN,TOTAL 0.4 mg/dL (0.2-1.0); CALCIUM, SERUM 7.2 mg/dL (8.5-10.1); CARBON DIOXIDE 29 mmol/L (21-32); CHLORIDE 106 mmol/L (98-107); CREATININE 1.3 mg/dL (0.6-1.3); GLUCOSE 139 mg/dL (74-106); MAGNESIUM 1.9 mg/dL (1.8-2.4); POTASSIUM 3.5 mmol/L (3.5-5.1); SODIUM SERUM 138 mmol/L (136-145); TOTAL PROTEIN, SERUM 4.4 g/dL (6.4-8.2); UREA NITROGEN, BLOOD 39 mg/dL (7-18)
[2023-07-22] MEDS: THERAHONEY GEL 1.5 OZ TUBE TP SCH (12:09)
[2023-07-23] VITALS (8 sets, daily range): BP systolic 99–111; BP diastolic 50–60; TEMP 98–98.8; O2SAT 97–100
[2023-07-23 06:43] LABS: BASOPHILS # (AUTO) 0.1 K/uL (0.0-0.2); BASOPHILS % (AUTO) 0.7 % (0.0-2.0); EOSINOPHILS # (AUTO) 0.9 K/uL (0.0-0.7); EOSINOPHILS % (AUTO) 7.5 % (0.0-6.0); HEMATOCRIT 26 % (39-51); HEMOGLOBIN 8.2 g/dL (13.5-17.5); LYMPHOCYTES # (AUTO) 1.3 K/uL (0.8-4.8); LYMPHOCYTES % (AUTO) 11.2 % (20.0-44.0); MEAN CORPUSCULAR HEMOGLOBIN 29 PG (26.0-33.0); MEAN CORPUSCULAR HGB CONC 32 g/dl (31.0-36.0); MEAN CORPUSCULAR VOLUME 91 fL (80-96); MONOCYTES # (AUTO) 0.9 K/uL (0.1-1.30); MONOCYTES % (AUTO) 7.9 % (2.0-12.0); NEUTROPHILS # (AUTO) 8.4 K/uL (1.8-8.9); NEUTROPHILS % (AUTO) 72.7 % (43.0-81.0); PLATELET COUNT (AUTO) 395 K/uL (150-450); RED BLOOD CELL COUNT(AUTO) 2.84 MIL/uL (4.5-6.0); WHITE BLOOD COUNT (AUTO) 11.6 K/uL (4.3-11.0)
[2023-07-23 07:07] LABS: CALCIUM, SERUM 7.4 mg/dL (8.5-10.1); CARBON DIOXIDE 26 mmol/L (21-32); CHLORIDE 106 mmol/L (98-107); CREATININE 1.2 mg/dL (0.6-1.3); GLUCOSE 136 mg/dL (74-106); MAGNESIUM 2.1 mg/dL (1.8-2.4); PHOSPHORUS 2.8 mg/dL (2.5-4.9); POTASSIUM 3.7 mmol/L (3.5-5.1); SODIUM SERUM 140 mmol/L (136-145); UREA NITROGEN, BLOOD 35 mg/dL (7-18)
[2023-07-24] VITALS: BP 99/56; TEMP 97.9; O2SAT 99
[2023-07-24 04:00] VITALS: BP 104/59; TEMP 98.3; O2SAT 99
[2023-07-24 08:00] VITALS: BP 95/47; TEMP 97.9; O2SAT 94
[2023-07-24] MEDS: HYDROCORTISONE SOD SUCCINATE 100 MG/2 ML VIAL IV SCH (08:14)
[2023-07-24] MEDS: FUROSEMIDE 20 MG/2 ML VIAL IV SCH (09:00)
[2023-07-24 10:34] LABS: BASOPHILS # (AUTO) 0.1 K/uL (0.0-0.2); BASOPHILS % (AUTO) 0.6 % (0.0-2.0); EOSINOPHILS # (AUTO) 0.9 K/uL (0.0-0.7); EOSINOPHILS % (AUTO) 8.6 % (0.0-6.0); HEMATOCRIT 22 % (39-51); HEMOGLOBIN 7.3 g/dL (13.5-17.5); LYMPHOCYTES # (AUTO) 0.8 K/uL (0.8-4.8); LYMPHOCYTES % (AUTO) 7.7 % (20.0-44.0); MEAN CORPUSCULAR HEMOGLOBIN 29 PG (26.0-33.0); MEAN CORPUSCULAR HGB CONC 33 g/dl (31.0-36.0); MEAN CORPUSCULAR VOLUME 90 fL (80-96); MONOCYTES # (AUTO) 0.5 K/uL (0.1-1.30); MONOCYTES % (AUTO) 4.9 % (2.0-12.0); NEUTROPHILS # (AUTO) 8.3 K/uL (1.8-8.9); NEUTROPHILS % (AUTO) 78.2 % (43.0-81.0); PLATELET COUNT (AUTO) 388 K/uL (150-450); RED BLOOD CELL COUNT(AUTO) 2.48 MIL/uL (4.5-6.0); WHITE BLOOD COUNT (AUTO) 10.7 K/uL (4.3-11.0)
[2023-07-24 11:06] VITALS: O2SAT 94
[2023-07-24 11:09] LABS: CALCIUM, SERUM 7.2 mg/dL (8.5-10.1); CREATININE 1.2 mg/dL (0.6-1.3); MAGNESIUM 1.9 mg/dL (1.8-2.4); PHOSPHORUS 2.7 mg/dL (2.5-4.9); POTASSIUM 3.3 mmol/L (3.5-5.1)
[2023-07-24 12:00] VITALS: BP 100/52; TEMP 97.9; O2SAT 94
[2023-07-24] MEDS: POTASSIUM CHLORIDE 20 MEQ TAB.PRT.SR PO ONE (12:57)
[2023-07-24] MEDS ORDERED: FURO-145 PO (13:00)
[2023-07-24] MEDS ORDERED: POTA10CA43 PO (13:00)
[2023-07-24 16:00] VITALS: BP 132/79; TEMP 97.8; O2SAT 94
== END 2023-07-24 17:58 | DRG 870 ==
LOC: ER 17:36 → ICU 21:39 → TELE1 07-22 14:02 → MEDSG1 07-23 16:31
PROVIDERS: ADMIT Nurse Practitioner Family; ATTEND Nurse Practitioner Acute Care
PROC: 5A1955Z Respiratory Ventilation, Greater than 96 Consecutive Hours (ICD-10-PCS; principal; 2023-07-10)
PROC: 0BH17EZ Insertion of Endotracheal Airway into Trachea, Via Natural or Artificial Opening (ICD-10-PCS; 2023-07-10)
PROC: 05HM33Z Insertion of Infusion Device into Right Internal Jugular Vein, Percutaneous Approach (ICD-10-PCS; 2023-07-10)
PROC: B543ZZA Ultrasonography of Right Jugular Veins, Guidance (ICD-10-PCS; 2023-07-10)
DX: A41.9 Sepsis, unspecified organism (principal); E11.10 Type 2 diabetes mellitus with ketoacidosis without coma; G93.41 Metabolic encephalopathy; I21.A1 Myocardial infarction type 2; J15.9 Unspecified bacterial pneumonia; R65.21 Severe sepsis with septic shock; J15.69 Pneumonia due to other Gram-negative bacteria; J96.01 Acute respiratory failure with hypoxia; R57.1 Hypovolemic shock; N17.0 Acute kidney failure with tubular necrosis; J69.0 Pneumonitis due to inhalation of food and vomit; E44.0 Moderate protein-calorie malnutrition; N39.0 Urinary tract infection, site not specified; R64 Cachexia; I48.92 Unspecified atrial flutter; E87.0 Hyperosmolality and hypernatremia; Z79.899 Other long term (current) drug therapy; D64.9 Anemia, unspecified; E86.0 Dehydration; E88.09 Other disorders of plasma-protein metabolism, not elsewhere classified; B96.89 Other specified bacterial agents as the cause of diseases classified elsewhere; Z86.73 Personal history of transient ischemic attack (TIA), and cerebral infarction without residual deficits; Z79.52 Long term (current) use of systemic steroids; B86 Scabies; Y95 Nosocomial condition; L89.156 Pressure-induced deep tissue damage of sacral region; N40.0 Benign prostatic hyperplasia without lower urinary tract symptoms; L30.9 Dermatitis, unspecified; L89.899 Pressure ulcer of other site, unspecified stage; R62.7 Adult failure to thrive; L89.626 Pressure-induced deep tissue damage of left heel; L89.616 Pressure-induced deep tissue damage of right heel; I48.91 Unspecified atrial fibrillation; E87.6 Hypokalemia; E87.5 Hyperkalemia; E83.51 Hypocalcemia; D69.6 Thrombocytopenia, unspecified; L85.3 Xerosis cutis; Z22.322 Carrier or suspected carrier of Methicillin resistant Staphylococcus aureus; R68.0 Hypothermia, not associated with low environmental temperature; I12.9 Hypertensive chronic kidney disease with stage 1 through stage 4 chronic kidney disease, or unspecified chronic kidney disease; N18.9 Chronic kidney disease, unspecified
CPT/HCPCS: 31720; 36415; 36600; 70450-TC; 71045-TC; 76770-TC; 80048-TC; 80053-TC; 80076-TC; 80202-TC; 81001; 82533; 82550-TC; 82570-TC; 82728-TC; 82803-TC; 82962-TC; 83540-TC; 83605-TC; 83735-TC; 83970; 84100-TC; 84155; 84165; 84300-TC; 84439-TC; 84443-TC; 84484-TC; 85025-TC; 85027-TC; 85652-TC; 85730-TC; 86225; 86235; 86706; 86803; 86850-TC; 87040-TC; 87081-TC; 87086-TC; 87340; 92526; 92611-TC; 93307-TC; 93971-TC; 94002-TC; 94003-TC; 94760-TC; 94762-TC; 94799-TC; 97110-TC; 97530-TC; 99082-TC; A4217; A4223; A6403; C9113; G0378; G0480; J0692; J1720; J1815; J1940; J2185; J3370; J3371; J3480; J3490; J7030; J7040; J7042; J7050; J7060; J7070; J7120; P9016